=== PATIENT | male | born 1995 | race Caucasian/White ===

== ENCOUNTER 2016-10-29 05:35 | Emergency (ER) | payer BC ==
[~2016-10-29] VITALS: Ht 177.8 cm; Wt 86.4 kg
[2016-10-29 05:40] VITALS: BP 134/84; TEMP 98.7
[2016-10-29] MEDS ORDERED: ADDERALL20 MG PO (05:40)
[2016-10-29] MEDS ORDERED: CEPHALEXIN500 M1 PO (07:21)
[2016-10-29 07:48] VITALS: PULSE 90
== END 2016-10-29 07:48 | disposition home or self-care (01) ==
LOC: COL.ER 05:35
DX: S01.81XA Laceration without foreign body of other part of head, initial encounter (principal); S09.90XA Unspecified injury of head, initial encounter; W01.198A Fall on same level from slipping, tripping and stumbling with subsequent striking against other object, initial encounter